=== PATIENT | female | born 1955 | race Two or more races ===

== ENCOUNTER 2024-10-26 07:24 | Emergency (ER) | payer MEDICARE ==
[~2024-10-26] VITALS: Ht 157.5 cm; Wt 52.4 kg
[2024-10-26 08:15] LABS: BASOPHILS % (AUTO) 0.4 % (0-1); EOSINOPHILS % (AUTO) 0.2 % (0-6); HEMATOCRIT 40.6 % (35.0-45.0); HEMOGLOBIN 13.5 g/dl (12.0-16.0); LYMPHOCYTES # (AUTO) 1.4 X10'3 (1.1-4.8); LYMPHOCYTES % (AUTO) 24.3 % (21-51); MEAN CORPUSCULAR HEMOGLOBIN 29.1 PG (27.0-31.0); MEAN CORPUSCULAR HGB CONC 33.2 g/dL (33.0-36.5); MEAN CORPUSCULAR VOLUME 87.7 FL (78-98); MEAN PLATELET VOLUME 7.5 FL (7.4-10.4); MONOCYTES # (AUTO) 0.6 X10'3 (0-0.9); MONOCYTES % (AUTO) 10.2 % (2-12); NEUTROPHILS # (AUTO) 3.8 X10'3 (1.8-7.7); NEUTROPHILS % (AUTO) 64.9 % (42-75); PLATELET COUNT 277 X10'3 (140-440); RED BLOOD COUNT 4.64 X10'6 (4.20-5.60); WHITE BLOOD COUNT 5.8 X10'3 (4.5-11.0)
[2024-10-26 08:25] LABS: ALANINE AMINOTRANSFERASE 36 U/L (12-78); ALBUMIN 4.3 G/DL (3.4-5.0); ALBUMIN/GLOBULIN RATIO 1.4 (1.1-1.5); ALKALINE PHOSPHATASE 88 IU/L (46-116); ANION GAP 7 (8-16); ASPARTATE AMINO TRANSFERASE 32 U/L (10-37); BILIRUBIN,TOTAL 0.8 MG/DL (0.1-1.0); BLOOD UREA NITROGEN 6 MG/DL (7-18); BUN/CREATININE RATIO 8.1 (10.0-20.0); CALCIUM 8.9 MG/DL (8.5-10.1); CHLORIDE 104 MMOL/L (99-107); CREATININE 0.74 MG/DL (0.40-0.90); GLUCOSE 127 MG/DL (70-104); LIPASE 32 U/L (16-77); POTASSIUM 3.1 MMOL/L (3.5-5.1); SODIUM 141 MMOL/L (135-145); TOTAL CARBON DIOXIDE 29.7 MMOL/L (24-32); TOTAL PROTEIN 7.4 G/DL (6.4-8.2); eCRCL 56 ML/MIN; eGFR 78 ML/MIN
[2024-10-26 08:27] LABS: BILIRUBIN,URINE NEGATIVE (Neg); COLOR,URINE YELLOW (Yellow); GLUCOSE, URINE NEGATIVE (Neg); KETONES,URINE NEGATIVE (Neg); LEUKOCYTE ESTERASE ,URINE TRACE (Neg); OCCULT BLOOD,URINE NEGATIVE (Neg); PROTEIN,URINE NEGATIVE (Neg); UROBILINOGEN,URINE 0.2 E.U/dL (0.2-1.0)
[2024-10-26 08:33] LABS: CLARITY,URINE SLIGHTLY CLOUDY (Clear); NITRITES, URINE NEGATIVE (Neg); UA COLLECTION TYPE CLN CATCH MIDSTREAM
[2024-10-26 08:34] LABS: BACTERIA,URINE FEW /HPF (Neg); MUCUS STRANDS NONE SEEN /LPF (Neg); RBC,URINE 0-2 /HPF (0-2); RENAL CELLS, URINE FEW /HPF; SQUAMOUS EPITHELIAL CELL,UR NONE SEEN /LPF (FEW); TRANSITIONAL EPI CELLS,URINE FEW /HPF; WBC,URINE 0-4 /HPF (0-4)
--- NOTE | 2024-10-26 09:12 | Physician Documentation ---
History of Present Illness ~ Chief Complaint: Vomiting Stated Complaint: H/A, VOMITING Time Seen by MD: 08:47 Primary Medical Doctor: [facility] Mode of Arrival: POV HPI 69-year-old female presenting with stomach irritation as well as nausea. The patient states that nine days ago she was diagnosed with H pylori infection in her stomach. She was started on several medications including metronidazole, doxycycline, omeprazole and bismuth. She states that she has been taking the medications but they are severely affecting her stomach. She reports that her stomach hurts and that she has had a lot of nausea during this time. She also feels very dry and has been unable to eat anything. She has been drinking some liquids but overall states that she feels slightly weak. No reports of any fever, chills or any other associated symptoms. Medication Reconciliation Allergies: Coded Allergies: No Known Allergies (Unverified , 10/26/24) Physical Exam Vital Signs: Temperature: 98.1, Source: Temporal, Heart Rate: 78, Respiratory Rate: 14, BP: 181/92, Pulse Oximetry: 98, Weight: 52.440 Physical Exam I have reviewed the triage vitals. CONST: Well developed and well nourished. In no acute distress HENT: Head Atraumatic EYES: Pupils are equal, round and reactive to light. Normal conjunctiva NECK: Normal range of motion. Supple. CARDIO: Normal rate and regular rhythm. No murmurs, rubs, or gallops. S1, S2. PULM/CHEST: No respiratory distress. Lungs clear to auscultation. No wheeze ABD: Soft and nontender. Nondistended. Bowel sounds normal. No guarding. : Exam deferred MSK: No edema. No deformity. NEURO: Alert and oriented to person, place and time. Moving all extremities SKIN: Warm and dry. PSYCH: Normal mood and affect. Good eye contact. Progress Results/Orders Results/Orders Orders - FLORINA BURDEN MD Cult Urine + [address] (10/26/24 08:33) Completed Orders - FLORINA BURDEN MD Cbc/Diff (10/26/24 07:34) BMP (10/26/24 07:34) Lipase (10/26/24 07:34) CMP (10/26/24 07:34) Ua W/Microscopic, Cult If Ind (10/26/24 07:56) Normal Saline 1000ml (Sodium Chloride 10 (10/26/24 09:10) Potassium Cl Sr Tablet (K-Dur Tablet) (10/26/24 09:09) Medications Received in ER Medications (Trade) Dose Ordered Sig/Deangelo Route PRN Reason Start Time Stop Time Status Last Admin Dose Admin (K-DUR tablet) 40 meq ONCE STAT PO 10/26/24 09:09 10/26/24 09:17 DC 10/26/24 09:45 40 MEQ Vital Signs 10/26/24 10/26/24 07:27 08:31 Temp 98.1 Pulse 78 Resp 15 14 B/P (MAP) 181/92 Pulse Ox 98 Laboratory Tests Test 10/26/24 07:56 10/26/24 07:59 Urine Specimen Description Cln catch midstream Urine Color Yellow Urine Clarity Slightly cloudy Urine pH 6.0 Urine Specific [place] 1.010 Urine Protein Negative Urine Glucose (UA) Negative Urine Ketones Negative Urine Occult Blood Negative Urine Nitrite Negative Urine Bilirubin Negative Urine Urobilinogen 0.2 Urine Leukocyte Esterase Trace H Urine RBC 0-2 Urine WBC 0-4 Urine Squamous Epithelial Cells None seen Urine Transitional Epithelial Cells Few Urine Renal Cells Few Urine Bacteria Few Urine Mucus None seen Urine Culture Indicated Indicated Volume Urine Centrifuged 10 ml Urine Comment White Blood Count 5.8 Red Blood Count 4.64 Hemoglobin 13.5 Hematocrit 40.6 Mean Corpuscular Volume 87.7 Mean Corpuscular Hemoglobin 29.1 Mean Corpuscular Hemoglobin Concent 33.2 Red Cell Distribution Width 14.0 Platelet Count 277 Mean Platelet Volume 7.5 Neutrophils (%) (Auto) 64.9 Lymphocytes (%) (Auto) 24.3 Monocytes (%) (Auto) 10.2 Eosinophils (%) (Auto) 0.2 Basophils (%) (Auto) 0.4 Neutrophils # (Auto) 3.8 Lymphocytes # (Auto) 1.4 Monocytes # (Auto) 0.6 Eosinophils # (Auto) 0.0 Basophils # (Auto) 0.0 CBC Comment Sodium Level 141 Potassium Level 3.1 L Chloride Level 104 Carbon Dioxide Level 29.7 Anion Gap 7 L Blood Urea Nitrogen 6 L Creatinine 0.74 Estimated GFR/1.73 m2 78 BUN/Creatinine Ratio 8.1 L Glucose Level 127 H Calcium Level 8.9 Total Bilirubin 0.8 Aspartate Amino Transf (AST/SGOT) 32 Alanine Aminotransferase (ALT/SGPT) 36 Alkaline Phosphatase 88 Total Protein 7.4 Albumin 4.3 Globulin 3.1 Albumin/Globulin Ratio 1.4 Lipase 32 Chemistry Comments Microbiology Date/Time Source Procedure Growth Status 10/26/24 08:33 Urine Clean Catch Midstream Urine Culture - Preliminary Culture received. Resulted Medical Decision Making Additional Comments 69-year-old female presenting with adverse effects from medication that she is taking for her H pylori infection. The patient is currently taking doxycycline, metronidazole, bismuth and immobility resolve. As expected the metronidazole likely and possibly the doxycycline is affecting her GI tract to the point where she can no longer take the medication. Patient's lab work is unremarkable aside from a low potassium. This was replaced. At this point given that she can not tolerate the given medications I will go ahead and stopped them. I will instead prescribe her a different treatment (triple therapy) for her H pylori infection. I will prescribe her a 10 day course of amoxicillin, clarithromycin as well as continue the omeprazole that she is already on. Advised the patient to stop her old medications and start these new ones. Ensure that she is drinking plenty of fluids and monitor for improvement and resolution. I will also prescribe her some Zofran to take as needed for nausea. Advised the patient to follow up closely with her primary care physician in the next week. Return to the ED with any acutely worsening symptoms. Departure Disposition: 01 HOME / SELF CARE / HOMELESS Impression: Primary Impression: Medication adverse effect Additional Impression: H. pylori infection Condition: Improved Discharge Instructions: Helicobacter Pylori Infection Additional Instructions: Por favor deje de lexi mcadams medicamento anterior y comience a lexi richard nuevo medicamento inés lo recetado. Monitoree la mejora y la resolucion de los sintomas. Siga co mcadams medico primario en ervin semana. Regrese al servicio de urgencias si los sintomas emporan. Referrals: NO PRIMARY CARE PROVIDER (PCP) Prescriptions ONDANSETRON ODT 4mg tablet (ONDANSETRON ODT) 4 Mg Tab.rapdis 1 TAB PO Q6H PRN PRN for nausea/vomiting for 4 Days, #16 TAB 0 Refills Prov: FLORINA BURDEN MD 10/26/24 Omeprazole (Omeprazole) 20 Mg Capsule.dr 1 CAP PO Q12H for 30 Days, #60 CAP 0 Refills Prov: FLORINA BURDEN MD 10/26/24 Clarithromycin (Clarithromycin) 500 Mg Tablet 1 TAB PO Q12H for 10 Days, #20 TAB Prov: FLORINA BURDEN MD 10/26/24 Amoxicillin Trihydrate (Amoxicillin) 500 Mg Capsule 2 CAP PO Q12H for 10 Days, #40 CAP Prov: FLORINA BURDEN MD 10/26/24 Signature Scribe Signature: 1 Attestation: 1 FLORINA BURDEN MD Oct 26, 2024 09:12
[2024-10-26] MEDS: normal saline 1000ml 1,000 ML IV ONE (09:45)
[2024-10-26] MEDS: potassium Cl 20 mEq SR tablet PO STA (09:45)
[2024-10-26] MEDS ORDERED: AMOX500C2 PO (10:52)
[2024-10-26] MEDS ORDERED: OMEP20CA16 PO (10:52)
[2024-10-26] MEDS ORDERED: CLAR-69 PO (10:52)
[2024-10-26] MEDS ORDERED: ONDA-243 PO (10:53)
[2024-10-26 11:16] VITALS: BP 163/88; PULSE 78; RESP 15; TEMP 98.1; O2SAT 98
== END 2024-10-26 11:17 | disposition home or self-care (01) ==
LOC: ER 07:26
DX: R11.2 Nausea with vomiting, unspecified (principal); R53.1 Weakness; T36.4X5A Adverse effect of tetracyclines, initial encounter; B96.81 Helicobacter pylori [H. pylori] as the cause of diseases classified elsewhere; Y92.89 Other specified places as the place of occurrence of the external cause
CPT/HCPCS: 36415; 80053; 81001; 83690; 85025; 87088; 99283; J7030

== ENCOUNTER 2024-10-28 08:34 | Emergency (ER) | payer MEDICARE, OTHER ==
[~2024-10-28] VITALS: Ht 160 cm; Wt 40.8 kg
[~2024-10-28 08:34] MED LIST: AMOX500C2 PO; CLAR-69 PO; OMEP20CA16 PO; ONDA-243 PO
[2024-10-28 08:39] VITALS: TEMP 98.3
[2024-10-28 09:13] LABS: BASOPHILS # (AUTO) 0.1 X10'3 (0-0.2); BASOPHILS % (AUTO) 0.9 % (0-1); EOSINOPHILS % (AUTO) 0.5 % (0-6); HEMATOCRIT 44.5 % (35.0-45.0); HEMOGLOBIN 14.9 g/dl (12.0-16.0); LYMPHOCYTES # (AUTO) 1.7 X10'3 (1.1-4.8); LYMPHOCYTES % (AUTO) 28.7 % (21-51); MEAN CORPUSCULAR HEMOGLOBIN 29.4 PG (27.0-31.0); MEAN CORPUSCULAR HGB CONC 33.4 g/dL (33.0-36.5); MEAN CORPUSCULAR VOLUME 87.9 FL (78-98); MEAN PLATELET VOLUME 7.4 FL (7.4-10.4); MONOCYTES # (AUTO) 0.5 X10'3 (0-0.9); MONOCYTES % (AUTO) 8.8 % (2-12); NEUTROPHILS # (AUTO) 3.7 X10'3 (1.8-7.7); NEUTROPHILS % (AUTO) 61.1 % (42-75); PLATELET COUNT 270 X10'3 (140-440); RED BLOOD COUNT 5.06 X10'6 (4.20-5.60); RED CELL DISTRIBUTION WIDTH 14.6 % (11.5-14.5)
[2024-10-28 09:19] LABS: BILIRUBIN,URINE NEGATIVE (Neg); COLOR,URINE STRAW (Yellow); GLUCOSE, URINE NEGATIVE (Neg); KETONES,URINE NEGATIVE (Neg); LEUKOCYTE ESTERASE ,URINE NEGATIVE (Neg); NITRITES, URINE NEGATIVE (Neg); OCCULT BLOOD,URINE NEGATIVE (Neg); PH,URINE 6.5 (4.8-8.0); PROTEIN,URINE NEGATIVE (Neg); UROBILINOGEN,URINE 0.2 E.U/dL (0.2-1.0)
[2024-10-28 09:28] LABS: CLARITY,URINE CLEAR (Clear); UA COLLECTION TYPE CLN CATCH MIDSTREAM
[2024-10-28 09:38] LABS: ALANINE AMINOTRANSFERASE 38 U/L (12-78); ALBUMIN 4.3 G/DL (3.4-5.0); ALBUMIN/GLOBULIN RATIO 1.3 (1.1-1.5); ALKALINE PHOSPHATASE 86 IU/L (46-116); ANION GAP 9 (8-16); ASPARTATE AMINO TRANSFERASE 33 U/L (10-37); BILIRUBIN,TOTAL 0.9 MG/DL (0.1-1.0); BLOOD UREA NITROGEN 9 MG/DL (7-18); BUN/CREATININE RATIO 12.7 (10.0-20.0); CALCIUM 9.2 MG/DL (8.5-10.1); CHLORIDE 103 MMOL/L (99-107); CREATININE 0.71 MG/DL (0.40-0.90); GLUCOSE 118 MG/DL (70-104); LIPASE 52 U/L (16-77); POTASSIUM 3.3 MMOL/L (3.5-5.1); SODIUM 139 MMOL/L (135-145); TOTAL CARBON DIOXIDE 27.5 MMOL/L (24-32); TOTAL PROTEIN 7.5 G/DL (6.4-8.2); eCRCL 47 ML/MIN; eGFR 81 ML/MIN
--- NOTE | 2024-10-28 09:55 | ELECTROCARDIOGRAPH REPORT ---
[facility] Test Date: 2024-10-28 Test Time: 09:53:37 Pat Name: ASHISH PEREYRA Department: [facility]- Patient ID: [facility]-[id number] Room: Gender: F General Inspector: : 1955 Requested By: FLORINA BURDEN Order Number: [id number] Reading MD: Measurements Intervals [place] Rate: 90 P: 36 IA: 165 QRS: -14 QRSD: 84 T: 45 QT: 364 QTc: 446 Interpretive Statements Sinus rhythm Probable left atrial enlargement Please click the below link to view image of tracing.
--- NOTE | 2024-10-28 10:07 | Physician Documentation ---
History of Present Illness ~ Chief Complaint: Abdominal Pain w/vomiting Stated Complaint: CHEST/ABDOMINAL/ARM PAIN Time Seen by MD: 08:53 [facility]: [facility] HPI 69-year-old female presenting with a headache and left-sided numbness and tingling that started yesterday. The patient was seen here yesterday. She is currently being treated for H pylori stomach infection. Yesterday she was seen here as she was not tolerating her medications that she had been placed on nine days ago. We switched her medications to a new course. She states that she started this new course but not only do her abdominal symptoms continue but now she has also developed this left-sided headache. She states that her head feels asleep and that she has also had some numbness and tingling in her left arm. Additionally she states that she feels like her headed floating as if she is drunk and has been having difficulty remembering things. She reports that she has continued epigastric pain that has been ongoing for the past two weeks since she started the initial medication. He has also had acid reflux symptoms and ongoing nausea. She denies any syncopal events, blurry vision, dizziness or any other associated symptoms. Medication Reconciliation Allergies: Coded Allergies: No Known Allergies (Unverified , 10/26/24) Scheduled Amoxicillin Trihydrate (Amoxicillin), 2 CAP PO Q12H Clarithromycin (Clarithromycin), 1 TAB PO Q12H Omeprazole (Omeprazole), 1 CAP PO Q12H Scheduled PRN ONDANSETRON ODT 4mg tablet (Ondansetron Odt), 1 TAB PO Q6H PRN PRN for nausea/vomiting Review of Systems All Other Systems at this time: Reviewed and Negative Physical Exam Vital Signs: Temperature: 98.3, Source: Temporal, Heart Rate: 102, Respiratory Rate: 18, BP: 135/79, Pulse Oximetry: 98, Weight: 40.800 Oxygen Flow Rate: 0 Physical Exam I have reviewed the triage vitals. CONST: Well developed and well nourished. In no acute distress HENT: Head Atraumatic EYES: Pupils are equal, round and reactive to light. Normal conjunctiva NECK: Normal range of motion. Supple. CARDIO: Normal rate and regular rhythm. No murmurs, rubs, or gallops. S1, S2. PULM/CHEST: No respiratory distress. Lungs clear to auscultation. No wheeze ABD: Soft and nontender. Nondistended. Bowel sounds normal. No guarding. : Exam deferred MSK: No edema. No deformity. NEURO: Alert and oriented to person, place and time. Moving all extremities SKIN: Warm and dry. PSYCH: Normal mood and affect. Good eye contact. Progress Results/Orders Results/Orders Orders - FLORINA BURDEN MD Chest,Single View (10/28/24 09:47) Hs Troponin I W Calculations (10/28/24 12:47) Ct Head (10/28/24 10:45) Cta Neck/Head (10/28/24 15:10) Completed Orders - FLORINA BURDEN MD Urinalysis, Cult If Indicated (10/28/24 08:45) Cbc/Diff (10/28/24 08:45) BMP (10/28/24 08:45) Lipase (10/28/24 08:45) CMP (10/28/24 08:45) Chest,Single View (10/28/24 09:47) Electrocardiogram (10/28/24 09:47) Hs Troponin I W Calculations (10/28/24 09:47) Hs Troponin I W Calculations (10/28/24 11:47) Ct Head (10/28/24 10:45) Ondansetron Inj. (Zofran 4mg/2ml Vial) (10/28/24 10:40) Famotidine/Pf Iv Inj (Pepcid Iv Inj) (10/28/24 10:40) Normal Saline 1000ml (Sodium Chloride 10 (10/28/24 10:40) Potassium Cl Sr Tablet (K-Dur Tablet) (10/28/24 14:22) Cta Neck/Head (10/28/24 15:10) Ammonia (10/28/24 14:26) Normal Saline 1000ml (Sodium Chloride 10 (10/28/24 14:30) Iohexol 350mg/Ml 100ml (Omnipaque 350mg/ (10/28/24 14:59) Medications Received in ER Medications (Trade) Dose Ordered Sig/Deangelo Route PRN Reason Start Time Stop Time Status Last Admin Dose Admin (Zofran 4mg/2ml vial) 4 mg ONCE ONCE IV 6/24/25 10:40 10/28/24 10:44 DC 10/28/24 11:30 4 MG (Pepcid IV inj) 20 mg ONCE ONCE IV 10/28/24 10:40 10/28/24 10:41 DC 10/28/24 11:30 20 MG Sodium Chloride 1,000 ml @ 1,000 mls/hr ONCE ONCE IV 10/28/24 10:40 10/28/24 11:39 DC 10/28/24 11:30 1,000 MLS/HR (K-DUR tablet) 20 meq ONCE STAT PO 10/28/24 14:22 10/28/24 14:29 DC 10/28/24 14:37 20 MEQ Sodium Chloride 1,000 ml @ 1,000 mls/hr ONCE ONCE IV 10/28/24 14:30 10/28/24 15:29 DC 10/28/24 14:37 1,000 MLS/HR Vital Signs 10/28/24 10/28/24 10/28/24 10/28/24 08:39 09:16 09:20 11:43 Temp 98.3 Pulse 117 102 86 Resp 15 18 18 13 B/P (MAP) 158/75 135/79 (97) 168/64 (98) Pulse Ox 93 98 99 O2 Flow Rate 0 0 10/28/24 15:00 Pulse 70 Resp 16 B/P (MAP) 156/65 (95) Pulse Ox 99 O2 Flow Rate 0 Laboratory Tests Test 10/28/24 08:59 10/28/24 09:02 10/28/24 11:41 10/28/24 14:46 Urine Specimen Description Cln catch midstream Urine Color Straw Urine Clarity Clear Urine pH 6.5 Urine Specific [place] <=1.005 Urine Protein Negative Urine Glucose (UA) Negative Urine Ketones Negative Urine Occult Blood Negative Urine Nitrite Negative Urine Bilirubin Negative Urine Urobilinogen 0.2 Urine Leukocyte Esterase Negative Urine Culture Indicated Not ind Volume Urine Centrifuged 10 ml Urine Comment White Blood Count 6.0 Red Blood Count 5.06 Hemoglobin 14.9 Hematocrit 44.5 Mean Corpuscular Volume 87.9 Mean Corpuscular Hemoglobin 29.4 Mean Corpuscular Hemoglobin Concent 33.4 Red Cell Distribution Width 14.6 H Platelet Count 270 Mean Platelet Volume 7.4 Neutrophils (%) (Auto) 61.1 Lymphocytes (%) (Auto) 28.7 Monocytes (%) (Auto) 8.8 Eosinophils (%) (Auto) 0.5 Basophils (%) (Auto) 0.9 Neutrophils # (Auto) 3.7 Lymphocytes # (Auto) 1.7 Monocytes # (Auto) 0.5 Eosinophils # (Auto) 0.0 Basophils # (Auto) 0.1 CBC Comment Sodium Level 139 Potassium Level 3.3 L Chloride Level 103 Carbon Dioxide Level 27.5 Anion Gap 9 Blood Urea Nitrogen 9 Creatinine 0.71 Estimated GFR/1.73 m2 81 BUN/Creatinine Ratio 12.7 Glucose Level 118 H Calcium Level 9.2 Total Bilirubin 0.9 Aspartate Amino Transf (AST/SGOT) 33 Alanine Aminotransferase (ALT/SGPT) 38 Alkaline Phosphatase 86 Troponin I High Sensitivity 7 8 Total Protein 7.5 Albumin 4.3 Globulin 3.2 Albumin/Globulin Ratio 1.3 Lipase 52 Chemistry Comments Troponin I High Sens Percent Delta 14 Troponin I Hi Sens Absolute Change 1 Ammonia < 10 L EKG/XRAY/CT/US/VASC/MRI EKG : Additional Comment EKG as interpreted by me shows normal sinus rhythm with a rate of 90 beats per minute, normal axis, no ST changes Chest X-Ray : Additional Comments DI CHEST,SINGLE VIEW, HISTORY: CHEST PAIN COMPARISON: None None TECHNICAL DATA: 1 view of the chest was obtained. FINDINGS: Lines and tubes: None Cardiomediastinal silhouette: normal Pulmonary vasculature: normal Lung expansion: normal Lung airspace: normal Lung interstitium: normal Pleura: normal Pneumothorax: no Bones: Unremarkable Other: no IMPRESSION: No acute intrathoracic abnormality. : Impression XAM: CT CT HEAD INDICATION: Headache and L sided numbness TECHNIQUE: CT of the head without intravenous contrast. Radiation Dose : 1. Head: CT Dose: CTDI volume is 40 mGy. Dose-length product is 881 mGy*cm The dose indicators for CT are the volume Computed Tomography (CT) Dose Index (CTDIvol) and the Dose Length Product (DLP), and are measured in units of mGy and mGy-cm, respectively. These indicators are not patient dose, but values generated from the CT scanner acquisition factors. The report includes radiation exposure data for exposures received during this examination. COMPARISON: None FINDINGS: There is no evidence of acute intracranial hemorrhage, extra-axial collection, mass effect, midline shift, herniation or hydrocephalus. The ventricles, sulci and cisterns are age appropriate. The escobar-white differentiation is intact. Patchy periventricular and subcortical white matter hypoattenuation is nonspecific but may be related to small vessel ischemic disease. The visualized paranasal sinuses and mastoid air cells are clear. The surrounding soft tissues and osseous structures are unremarkable. IMPRESSION: 1. No acute intracranial abnormality. Departure Disposition: HOME / SELF CARE / HOMELESS Impression: Primary Impression: Head ache Additional Impressions: Acute gastritis H. pylori infection Additional Instructions: Por favpr continue tomando gali medicamentos. Gali analisis de laboratorio y estudios de imagen estan todos normales. Cuando que termine gali medicamentos, se sentira mejor. Puede lexi Tylenol inés sea necesario para el dolor de charles. Tayler ervin gaby de seguimiento con mcadams medico habitual en el transcurso de la proxima semana. Referrals: NO PRIMARY CARE PROVIDER (PCP) FLORINA BURDEN MD Oct 28, 2024 10:07
--- NOTE | 2024-10-28 10:17 | RADIOLOGY REPORT ---
DI CHEST,SINGLE VIEW, HISTORY: CHEST PAIN COMPARISON: None None TECHNICAL DATA: 1 view of the chest was obtained. FINDINGS: Lines and tubes: None Cardiomediastinal silhouette: normal Pulmonary vasculature: normal Lung expansion: normal Lung airspace: normal Lung interstitium: normal Pleura: normal Pneumothorax: no Bones: Unremarkable Other: no IMPRESSION: No acute intrathoracic abnormality.
--- NOTE | 2024-10-28 11:12 | RADIOLOGY REPORT ---
EXAM: CT CT HEAD INDICATION: Headache and L sided numbness TECHNIQUE: CT of the head without intravenous contrast. Radiation Dose : 1. Head: CT Dose: CTDI volume is 40 mGy. Dose-length product is 881 mGy*cm The dose indicators for CT are the volume Computed Tomography (CT) Dose Index (CTDIvol) and the Dose Length Product (DLP), and are measured in units of mGy and mGy-cm, respectively. These indicators are not patient dose, but values generated from the CT scanner acquisition factors. The report includes radiation exposure data for exposures received during this examination. COMPARISON: None FINDINGS: There is no evidence of acute intracranial hemorrhage, extra-axial collection, mass effect, midline s hift, herniation or hydrocephalus. The ventricles, sulci and cisterns are age appropriate. The escobar-white differentiation is intact. Patchy periventricular and subcortical white matter hypoattenuation is nonspecific but may be related to small vessel ischemic disease. The visualized paranasal sinuses and mastoid air cells are clear. The surrounding soft tissues and osseous structures are unremarkable. IMPRESSION: 1. No acute intracranial abnormality. Radiation optimization: All CT scans at this facility use at least one of these dose optimization cinthia hniques: automated exposure control mA and/or kV adjustment per patient size (includes targeted exam s where dose is matched to clinical indication) or iterative reconstruction.
[2024-10-28] MEDS: ondansetron/PF 4mg/2ml inj IV ONE (11:30)
[2024-10-28] MEDS: normal saline 1000ml 1,000 ML IV ONE ×2 (11:30→14:37)
[2024-10-28] MEDS: famotidine/PF 10 mg/ml inj IV ONE (11:30)
[2024-10-28] MEDS: potassium Cl 20 mEq SR tablet PO STA (14:37)
[2024-10-28] MEDS ORDERED: iohexol 350MG/ML 100ml bottle IV ONE (14:59)
--- NOTE | 2024-10-28 16:04 | RADIOLOGY REPORT ---
EXAM: CT CTA NECK/HEAD HISTORY: confusion COMPARISON: Noncontrast CT scan of the head from earlier same day. TECHNIQUE: High-resolution helical CT images of the head and neck were performed with 100 ml omnipaqu e 350 IV contrast utilizing CTA protocol. Sagittal and coronal reformatted images and 3-D MIP reconst ructions were obtained. This CT exam was performed using one or more of the following dose reduction techniques: Automated exposure control, adjustment of the mA and/or kV according to patient size, or use of iterative reconstruction technique. Radiation Dose: CT Dose: CTDI volume is 26.83 mGy. Dose-length product is 127.15 mGy*cm FINDINGS: [place]: No evidence of aneurysmal dilatation or significant stenosis about the ci rcle of [place]. The bilateral MCAs, ACAs, and powertrain design engineer are widely patent. The cavernous and petrous ICAs are patent. Right carotid system: No significant stenosis of the CCA, ICA, or ECA origin. The distal cervical ICA is tortuous. Left carotid system: No significant stenosis of the CCA, ICA, or ECA origin. The distal cervical ICA is tortuous. Vertebrobasilar: The bilateral vertebral arteries and basilar artery are patent. The right vertebral artery is dominant. Miscellaneous: The patient is completely edentulous. There is moderate to severe cervical degenerativ e disc disease and facet arthropathy with moderate spinal canal stenosis at C6-C7; [id number] s ryann canal stenosis at C3-C4, C4-C5, and C5-C6. There is significant neural foraminal stenosis C3-C4 bilaterally, C4-C5 on the left, C5-C6 bilaterally, C6-C7 bilaterally. IMPRESSION: 1. No aneurysmal dilatation or significant stenosis about the [place]. 2. No significant stenosis of the bilateral cervical carotid arteries or vertebral arteries. 3. Cervical degenerative disc disease and facet arthropathy with moderate spinal canal stenosis at C6 -C7, multilevel [id number] spinal canal stenosis. Additionally, there is multilevel significan t neural foraminal stenosis as detailed above. These would be better characterized with noncontrast M RI of the cervical spine on an outpatient basis, especially if the patient complains of upper extremi ty radicular symptoms.
[2024-10-28 16:37] VITALS: BP 143/62; PULSE 86; RESP 16; O2SAT 98
== END 2024-10-28 16:42 | disposition home or self-care (01) ==
LOC: ER 08:35
DX: K29.00 Acute gastritis without bleeding (principal); R51.9 Headache, unspecified; B96.81 Helicobacter pylori [H. pylori] as the cause of diseases classified elsewhere; K21.9 Gastro-esophageal reflux disease without esophagitis; Z79.899 Other long term (current) drug therapy
CPT/HCPCS: 36415; 70450; 70496; 70498; 71045; 80053; 81003; 82140; 83690; 84484; 85025; 93005; 96361; 96374; 96375; 99285; J2405; J3490; J7030; Q9967

== ENCOUNTER 2025-01-14 08:38 | Emergency (ER) | payer MEDICARE, OTHER, MEDICAID ==
[~2025-01-14] VITALS: Ht 157.5 cm; Wt 54.5 kg
[~2025-01-14 08:38] MED LIST changes: -AMOX500C2 PO; -CLAR-69 PO
[2025-01-14 08:58] VITALS: TEMP 97.2
--- NOTE | 2025-01-14 09:02 | Physician Documentation ---
History of Present Illness Chief Complaint: Abdominal Pain Stated Complaint: ABD PAIN Primary Medical Doctor: [facility] This pleasant 69-year-old female presents with two months of increasing severity right lower quadrant abdominal pain. She says that she was recently treated for H pylori and the medication she was given has made her symptoms worse. Denies any exacerbating or alleviating factors. That her bowel movements have been irregular. Diarrhea Patient states she has all of her organs. Day of Onset: Jan 14, 2025 Medication Reconciliation Allergies: Coded Allergies: No Known Allergies (Unverified , 01/14/25) Scheduled Omeprazole (Omeprazole), 1 CAP PO Q12H Omeprazole (Prilosec), 1 CAP PO DAILY Scheduled PRN ONDANSETRON ODT 4mg tablet (Ondansetron Odt), 1 TAB PO Q6H PRN PRN for nausea/vomiting Review of Systems All Other Systems at this time: Reviewed and Negative ROS As stated above in the HPI, otherwise all systems are reviewed and negative. Physical Exam Physical Exam General: Alert, no apparent distress. Chest: No accessory muscle use. Cardiovascular: Regular rate and rhythm, no murmurs. Gastrointestinal: Soft,r lower quadrant tenderness Extremities: Normal range of motion, no deformity. Neurologic: Oriented x4. Psychiatric: Normal mood and affect. Skin: Normal color, warm and dry. No edema, no ecchymosis. Medical Decision Making Findings Treated patient with a GI cocktail after a CT findings and laboratory findings did not show any signs of any infectious processes. In fact the CT indicated there were no gross abnormalities at all. Discharge her with the omeprazole and have her follow up with her primary Differential Dx:Considerations: Include: AAA, -Complete, - Incomplete, -Inevitable, -Missed, -Threatened, Abruptio placentae, Angina/[place], Aortic dissection, Appendicitis, Bowel obstruction, Cholangitis, Cholelithasis, Constipation, Diverticular disease, Esophageal rupture, Esophagitis, Gastritis/PUD, Gastroenteritis, GI hemorrhage, Hernia, Hepatitis, Inflammatory BD, Ischemic bowel, Ovarian cyst/torsion, Pancreatitis, PID, Porphyria, Trauma, intraabdominal, Urinary obstruction, Urinary tract infection, Urolithiasis, Other Departure Disposition: HOME / SELF CARE / HOMELESS Impression: Primary Impression: Acute gastritis Condition: Improved Discharge Instructions: Gastritis, Adult Referrals: NO PRIMARY CARE PROVIDER (PCP) Prescriptions Omeprazole (Prilosec) 40 Mg Capsule 1 CAP PO DAILY for 30 Days, #30 CAP Prov: MICHAEL ALLEN NP 01/14/25 Signature Scribe Signature: fScribed for Michael Allen It Architect by Michael Navarro NP . 01/14/25 17:06 Attestation: Scribed for Michael Allen It Architect by Michael Navarro NP . 01/14/25 17:07 MICHAEL ALLEN NP Jan 14, 2025 09:02
[2025-01-14 09:38] LABS: MEAN PLATELET VOLUME 7.3 FL (7.4-10.4); RED CELL DISTRIBUTION WIDTH 14.1 % (11.5-14.5)
[2025-01-14 09:53] LABS: CREATININE 0.79 MG/DL (0.40-0.90); TOTAL CARBON DIOXIDE 30.5 MMOL/L (24-32); eCRCL 52 ML/MIN; eGFR 72 ML/MIN
--- NOTE | 2025-01-14 10:14 | RADIOLOGY REPORT ---
Exam: CT CT ABDOMEN PELVIS History: abd Comparison Study: None Technique: Multidetector spiral CT of the abdomen and pelvis was performed from lung bases to pubic symphysis. Imaging was performed without intravenous contrast. Coronal and sagittal multiplanar reformats were obtained from the axial data set by the technologist. Radiation Dose : 1. Abdomen/Pelvis: CTDIvol 6.96 mGy, DLP 285.1 mGy*cm. Findings: Evaluation of vasculature and solid organs is limited due to lack of intravenous contrast use. Lung Bases: Lung bases are clear. Visualized portions of the heart and pericardium are unremarkable. Liver: The liver is normal in size. No focal lesions. Gallbladder and Biliary Tree: The gallbladder is unremarkable. No intrahepatic or extrahepatic biliary ductal dilatation. Spleen: Unremarkable Pancreas: Pancreas is not well evaluated without intravenous contrast. Pancreatic duct appears dilated measuring 0.6 mm. Adrenal Glands: Unremarkable Kidneys: No intrarenal calculi or hydronephrosis. Left renal cysts. GI tract: The stomach is grossly normal in appearance. No evidence of small bowel wall thickening or abnormal dilatation to suggest bowel obstruction. The colon is unremarkable. The appendix is visualized, without evidence to suggest acute appendicitis. Peritoneum/mesentery/retroperitoneum. No evidence of free intraperitoneal air. No ascites. No evidence of suspicious lymphadenopathy. Abdominal Wall: Unremarkable. Vasculature: The visualized abdominal aorta is normal in size and caliber. Evaluation of abdominal and pelvic vessels is limited due to lack of intravenous contrast. Urinary Bladder: Grossly unremarkable for degree of distention. Pelvic Organs: Unremarkable Musculoskeletal: No aggressive focal bony lesions, acute fractures or dislocation. IMPRESSION: 1. No acute abdominal or pelvic findings.
[2025-01-14 10:45] LABS: LEUKOCYTE ESTERASE ,URINE SMALL (Neg); NITRITES, URINE NEGATIVE (Neg); OCCULT BLOOD,URINE NEGATIVE (Neg); UA COLLECTION TYPE CLN CATCH MIDSTREAM
[2025-01-14 10:54] LABS: MUCUS STRANDS NONE SEEN /LPF (Neg); SQUAMOUS EPITHELIAL CELL,UR FEW /LPF (FEW)
[2025-01-14] MEDS ORDERED: OMEP40CA21 PO (11:00)
[2025-01-14] MEDS: LIDOcaine 2% Viscous 15ml cup MM PRN (11:13)
[2025-01-14] MEDS: mag hydrox/Alum hydrox/simeth 30ml oral suspension PO ONE (11:13)
[2025-01-14 11:29] VITALS: BP 151/82; PULSE 82; RESP 15; O2SAT 98
== END 2025-01-14 11:31 | disposition home or self-care (01) ==
LOC: ER 08:39
DX: K29.00 Acute gastritis without bleeding (principal)
CPT/HCPCS: 36415; 74176; 80053; 81001; 82150; 83690; 85025; 87088; 99284

== ENCOUNTER 2025-01-20 14:56 | Emergency (ER) | payer MEDICARE, OTHER ==
[~2025-01-20] VITALS: Ht 154.9 cm; Wt 49.4 kg
[~2025-01-20 14:56] MED LIST changes: +OMEP40CA21 PO
[2025-01-20 15:07] VITALS: TEMP 98.1
--- NOTE | 2025-01-20 15:17 | ELECTROCARDIOGRAPH REPORT ---
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 Juan Nogueira Measurements Intervals [place] Rate: 107 P: 52 MI: 184 QRS: -41 QRSD: 80 T: 38 QT: 328 QTc: 438 Interpretive Statements Sinus tachycardia Probable anterolateral infarct, old Electronically Signed On 01-21-2025 19:18:[address] Juan Nogueira Please click the below link to view image of tracing.
[2025-01-20 16:04] LABS: MEAN PLATELET VOLUME 7.7 FL (7.4-10.4); RED CELL DISTRIBUTION WIDTH 14.1 % (11.5-14.5)
[2025-01-20 16:10] VITALS: RESP 16
[2025-01-20 16:17] LABS: TOTAL CARBON DIOXIDE 28.5 MMOL/L (24-32)
[2025-01-20 16:30] LABS: CREATININE 0.81 MG/DL (0.40-0.90); eCRCL 49 ML/MIN; eGFR 70 ML/MIN
--- NOTE | 2025-01-20 16:30 | Physician Documentation ---
History of Present Illness Chief Complaint: Abdominal Pain Stated Complaint: CP BLURRY VISION Time Seen by MD: 15:25 Primary Medical Doctor: [facility] This 69-year-old female presents to the ED with multiple nonspecific complaints. He has recently seen here for abdominal pain and scan via CT with no acute findings. Patient's primary concern is her abdominal pain which is intermittent in nature. She believes that the recently prescribed Bactrim and lisinopril was causing her to have headaches. Denies any fevers. Reports a history of constipation. Medication Reconciliation Allergies: Coded Allergies: No Known Allergies (Unverified , 01/20/25) Scheduled Omeprazole (Omeprazole), 1 CAP PO Q12H Omeprazole (Prilosec), 1 CAP PO DAILY Scheduled PRN ONDANSETRON ODT 4mg tablet (Ondansetron Odt), 1 TAB PO Q6H PRN PRN for nausea/vomiting Review of Systems All Other Systems at this time: Reviewed and Negative ROS As stated above in the HPI, otherwise all systems are reviewed and negative. Physical Exam Vital Signs: Temperature: 98.1, Source: Temporal, Heart Rate: 76, Respiratory Rate: 16, BP: 150/73, Pulse Oximetry: 98, Weight: 49.400 Oxygen Flow Rate: 0 Physical Exam General: Alert, no apparent distress. Respiratory: Lungs clear, no respiratory distress. Gastrointestinal: Soft, mild tenderness llq Neurologic: Oriented x4. Psychiatric: Normal mood and affect. Skin: Normal color, warm and dry. No edema, no ecchymosis. Progress Results/Orders Results/Orders Orders - MICHAEL ALLEN MEAL ATTENDANT CMP (01/20/25 15:26) Abdomen,Single View(Kub) (01/20/25 16:18) Completed Orders - MICHAEL ALLEN MEAL ATTENDANT Polyethylene Glycol 3350 Pkt (Miralax Pa (01/20/25 16:25) Vital Signs 01/20/25 01/20/25 01/20/25 15:07 15:45 16:10 Temp 98.1 Pulse 111 76 Resp 16 16 B/P (MAP) 132/72 150/73 (98) Pulse Ox 96 98 O2 Flow Rate 0 0 Laboratory Tests Test 01/20/25 15:37 White Blood Count 6.8 Red Blood Count 4.67 Hemoglobin 13.7 Hematocrit 41.4 Mean Corpuscular Volume 88.5 Mean Corpuscular Hemoglobin 29.4 Mean Corpuscular Hemoglobin Concent 33.2 Red Cell Distribution Width 14.1 Platelet Count 270 Mean Platelet Volume 7.7 Neutrophils (%) (Auto) 62.2 Lymphocytes (%) (Auto) 26.9 Monocytes (%) (Auto) 10.1 Eosinophils (%) (Auto) 0.3 Basophils (%) (Auto) 0.5 Neutrophils # (Auto) 4.2 Lymphocytes # (Auto) 1.8 Monocytes # (Auto) 0.7 Eosinophils # (Auto) 0.0 Basophils # (Auto) 0.0 CBC Comment Sodium Level 144 Potassium Level 3.6 Chloride Level 106 Carbon Dioxide Level 28.5 Anion Gap 10 Blood Urea Nitrogen 10 Glucose Level 117 H Lactic Acid Level 0.8 Calcium Level 9.3 Total Bilirubin 0.6 Aspartate Amino Transf (AST/SGOT) 22 Alanine Aminotransferase (ALT/SGPT) 16 Alkaline Phosphatase 94 Total Protein 7.9 Albumin 4.4 Globulin 3.5 Albumin/Globulin Ratio 1.3 Lipase 39 Chemistry Comments Medical Decision Making Findings Patient has a several nonspecific complaints along with the indications for anxiety about her health. Her previous CT scan as I said before was unremarkable. I ordered a KUB and I will treat her for suspected constipation. I recommend that she continues to take the omeprazole that I previously prescribed and advise her to follow up in the outpatient setting Her laboratory values were unremarkable for any infectious processes she remains hemodynamically stable Differential Dx:Considerations: Include: AAA, -Complete, - Incomplete, -Inevitable, -Missed, -Threatened, Abruptio placentae, Angina/CO, Aortic dissection, Appendicitis, Bowel obstruction, Cholangitis, Cholelithasis, Constipation, Diverticular disease, Esophageal rupture, Esophagitis, Gastritis/PUD, Gastroenteritis, GI hemorrhage, Hernia, Hepatitis, Inflammatory BD, Ischemic bowel, Ovarian cyst/torsion, Pancreatitis, PID, Porphyria, Trauma, intraabdominal, Urinary obstruction, Urinary tract in fection, Urolithiasis, Other Departure Disposition: 01 HOME / SELF CARE / HOMELESS Impression: Primary Impression: Abdominal pain Additional Impression: Constipation Ruled Out: H. pylori infection Condition: Improved Discharge Instructions: Constipation, Adult, [id number] Referrals: NO PRIMARY CARE PROVIDER (PCP) Prescriptions Polyethylene Glycol 3350* (Miralax*) 1 Packet Packet 1 PKT PO DAILY for constipation for 2 Days, #2 PKT dissolve in water Prov: MICHAEL ALLEN NP 01/20/25 Education Educated: Patient Educated regarding: diagnosis Signature Scribe Signature: gerald Attestation: Scribed for Michael Allen Furniture Technician by Michael Navarro NP . 01/20/25 16:30 MICHAEL ALLEN NP Jan 20, 2025 16:30
[2025-01-20] MEDS: polyethylene glycol 3350 17gm powd pack PO ONE (16:46)
--- NOTE | 2025-01-20 17:16 | RADIOLOGY REPORT ---
Indication: constipation Technique: DI ABDOMEN,SINGLE VIEW(KUB)[id number] Comparison: None FINDINGS/IMPRESSION: Moderate to large volume stool throughout the colon. No evidence for free intraperitoneal air. No pathological calcifications.
[2025-01-20 17:17] LABS: LEUKOCYTE ESTERASE ,URINE SMALL (Neg); NITRITES, URINE NEGATIVE (Neg); OCCULT BLOOD,URINE NEGATIVE (Neg)
[2025-01-20 17:24] LABS: UA COLLECTION TYPE CLN CATCH MIDSTREAM
[2025-01-20 17:26] LABS: SQUAMOUS EPITHELIAL CELL,UR NONE SEEN /LPF (FEW)
[2025-01-20] MEDS ORDERED: POLY17PO10 PO (17:38)
[2025-01-20 17:39] VITALS: BP 135/63; PULSE 68; O2SAT 97
== END 2025-01-20 17:43 | disposition home or self-care (01) ==
LOC: ER 14:57
DX: K59.00 Constipation, unspecified (principal); Z79.899 Other long term (current) drug therapy
CPT/HCPCS: 36415; 74018; 80053; 81001; 83605; 83690; 84145; 85025; 87088; 93005; 99285

== ENCOUNTER 2025-05-04 08:01 | Outpatient (CLI) | payer MEDICARE ==
[~2025-05-04 08:01] MED LIST changes: -OMEP40CA21 PO
--- NOTE | 2025-05-04 15:56 | RADIOLOGY REPORT ---
CT CT SINUS INDICATION: OTHER SPECIFIED DISORDERS OF NOSE AND NASAL SINUSES TECHNIQUE: Noncontrast axial images of the facial bones are then obtained along with coronal and sagittal reformatted images. All CT scans at this facility use dose modulation, iterative reconstruction, and/or weight based dosing when appropriate to reduce radiation dose to as low as reasonably achievable. COMPARISON: None FINDINGS: FACIAL BONES: The nasal, lacrimal, inferior nasal fabiano, and palatine bones are intact. The vomer and perpendicular plate of the ethmoid are intact. The zygomatic bones are intact. The maxilla is intact. Degenerative change of bilateral temporomandibular joints. Edentulous. The mandible is intact. PARANASAL SINUSES:The bony margins of the paranasal sinuses are intact. Mild mucosal thickening of the left maxillary sinus. Mild mucosal thickening of the left posterior ethmoidal air cells. There is no air fluid level within the sinuses. ORBITS:The right and left globes are intact. The bony margins of the orbits are intact. The extraconal space is intact without inflammatory stranding of the extraconal fat. The extraocular muscles are symmetric. The intraconal space including the optic canal and nerve are symmetric. OTHER:Edentulous. IMPRESSION: 1. Mild mucosal thickening of the left maxillary sinus and left posterior ethmoidal air cells. 2. No air-fluid levels within the paranasal sinuses.
== END 2025-05-04 23:59 | disposition home or self-care (01) ==
LOC: MERGE 08:01 → RAD 08:01 → EDSEX 08:01 → RAD 23:59
PROVIDERS: ATTEND Family Medicine
DX: J34.89 Other specified disorders of nose and nasal sinuses (principal); M19.09 Primary osteoarthritis, other specified site; M26.69 Other specified disorders of temporomandibular joint
CPT/HCPCS: 70486